=== PATIENT | male | born 1960 | race African-American/Black ===

== ENCOUNTER 2020-03-21 17:36 | Emergency (ER) | payer OTHER ==
[~2020-03-21] VITALS: Ht 180.3 cm; Wt 87.1 kg
[2020-03-21] MEDS ORDERED: Ketorolac 30mg Inj IM ONE (18:00)
[2020-03-21] MEDS ORDERED: Methocarbamol 750mg tab ORAL ONE (18:00)
--- NOTE | 2020-03-21 18:16 | NUR ---
pt in CT
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
[2020-03-21] MEDS ORDERED: IBUPROFEN600 M1 ORAL (19:36)
[2020-03-21] MEDS ORDERED: ROBAXIN-500MG ORAL (19:36)
[2020-03-21] MEDS ORDERED: LIDODERM700 M1 TOPIC (19:36)
--- NOTE | 2020-03-21 19:39 | NUR ---
ER DISCHARGE NOTE: Patient is cleared to be discharged per ER MD, pt is aox4, on room air, with stable vital signs. pt was given dc and prescription instructions, pt was able to verbalize understanding, pt id band removed without complications. pt is able to ambulate with steady gait. pt took all belongings.
[2020-03-21 19:40] VITALS: BP 128/78
== END 2020-03-21 19:42 | disposition home or self-care (01) ==
LOC: EMR 17:45
DX: S16.1XXA Strain of muscle, fascia and tendon at neck level, initial encounter (principal); S29.012A Strain of muscle and tendon of back wall of thorax, initial encounter; V43.52XA Car driver injured in collision with other type car in traffic accident, initial encounter; Y92.410 Unspecified street and highway as the place of occurrence of the external cause; M79.18 Myalgia, other site
CPT/HCPCS: 71250; 72125; 96372; J1885; Z7502; 99284